=== PATIENT | male | born 1995 | race Caucasian/White ===

== ENCOUNTER 2021-05-11 20:51 | Emergency (ER) | payer OTHER ==
[2021-05-11 22:00] LABS: BASOPHIL 0.2 % (0-2); EOSINOPHIL 3.2 % (0-5); HCT 44.1 % (42.0-52.0); HGB 14.7 g/dl (13.2-18.0); LYMPHOCYTE 30.1 % (15-48); MCH 29.8 pg (25.0-31.0); MCHC 33.3 g/dL (32.0-36.0); MCV 89.3 fL (78.0-100.0); MONOCYTE 12.3 % (0-12); MPV 9.7 fL (6.0-9.5); NRBC 0; PLT 213 K/uL (150-400); RBC 4.94 M/uL (4.70-6.00); RDW 11.9 % (11.5-14.0); WBC 4.4 K/uL (4.0-10.5)
[2021-05-11 22:30] LABS: ALBUMIN 4.2 g/dL (3.4-5.0); ALKALINE PHOSHATASE 88 U/L (46-116); ALT 29 U/L (16-63); AST 8 U/L (15-37); BILIRUBIN - TOTAL 0.2 mg/dL (0.2-1.0); BUN 13 mg/dL (7-18); BUN/CREAT RATIO (CALC) 19.1 RATIO; CHLORIDE 105 mmol/L (98-107); CO2 (BICARBONATE) 25 mmol/L (21-32); CREATININE 0.68 mg/dL (0.67-1.17); GLOBULIN (CALCULATION) 3.4 g/dL; GLUCOSE 95 mg/dL (74-106); LDH 80 U/L (85-227); MAGNESIUM 1.9 mg/dL (1.8-2.4); TOTAL PROTEIN 7.6 g/dL (6.4-8.2)
[2021-05-11 22:31] LABS: C-REACTIVE PROTEIN < 0.20 mg/dL (<=0.90); PRO-BNP 20 pg/mL (<125)
[2021-05-11] MEDS ORDERED: NAPROXEN500 MG PO (23:09)
[2021-05-11] MEDS ORDERED: VENTOLIN HFA18 GM INH (23:09)
[2021-05-11] MEDS ORDERED: PHENERGAN25 M1 PO (23:09)
[2021-05-11] MEDS ORDERED: TESSALON PERLE100 M1 PO (23:09)
[2021-05-11] MEDS ORDERED: MEDROL 4MG DOSEP4 MG PO (23:09)
== END 2021-05-11 23:56 | disposition home or self-care (01) ==
LOC: FER 20:51
PROVIDERS: Emergency Medicine
DX: R00.2 Palpitations (principal); U07.1 COVID-19; F17.200 Nicotine dependence, unspecified, uncomplicated; Z79.899 Other long term (current) drug therapy
CPT/HCPCS: 36415; 71046; 80053; 82728; 83615; 83735; 83880; 84145; 84443; 84484; 85025; 86140; 93005; U0002